=== PATIENT | male | born 1970 | race Caucasian/White ===

== ENCOUNTER 2016-09-17 15:16 | Emergency (ER) | payer MEDICAID ==
[~2016-09-17] VITALS: Ht 167.6 cm; Wt 103.1 kg
[~2016-09-17 15:16] MED LIST: None per pt
[2016-09-17] MEDS ORDERED: METF500T4 PO (16:12)
[2016-09-17] MEDS ORDERED: HTN MEDS (16:12)
[2016-09-17] MEDS ORDERED: LORazepam 2 MG/ML, 1ML ONE (16:28)
[2016-09-17] MEDS ORDERED: CHLORDIAZEPOXIDE 25 MG CAPSULE PO PRN (16:30)
[2016-09-17] MEDS ORDERED: SODIUM CHLORIDE 0.9% 1,000ML IVBOLUS ONE (16:30)
[2016-09-17] MEDS ORDERED: SODIUM CHLORIDE FLUSH 10ML SYR IVF ONE (16:30)
[2016-09-17] MEDS ORDERED: THIAMINE 100 MG in SODIUM CHLORIDE 0.9% 50 ML IVPB ONE (16:30)
[2016-09-17] MEDS ORDERED: LORazepam 2 MG/ML, 1ML IVPush PRN (16:30)
[2016-09-17] MEDS ORDERED: ONDANSETRON 2MG/ML, 2ML ONE (16:33)
[2016-09-17 16:47] LABS: HEMOGLOBIN 16.5 g/dL (13.7-18.0)
[2016-09-17 16:57] LABS: ASPARTATE AMINO TRANSFERASE 43 U/L (15-37); BLOOD UREA NITROGEN 12 mg/dL (7-18)
[2016-09-17] MEDS ORDERED: ONDANSETRON 2MG/ML, 2ML IVPush ONE (17:00)
[2016-09-17 17:30] VITALS: BP_DIAS 85
[2016-09-17 18:26] VITALS: BP_SYST 126
== END 2016-09-17 19:05 | disposition home or self-care (01) ==
LOC: ED 17:24
DX: F10.239 Alcohol dependence with withdrawal, unspecified (principal); I10 Essential (primary) hypertension; E11.9 Type 2 diabetes mellitus without complications; Y90.9 Presence of alcohol in blood, level not specified
CPT/HCPCS: 36415; 80053; 85025; 96365; 96375; 99284; J2060; J2405; J3411; J7030

== ENCOUNTER → 2019-12-20 | Outpatient (CLI) | payer MEDICAID ==
[~2019-12-20] MED LIST changes: +BENA10TA59 PO; +HTN MEDS; +METF500T17 PO; +OXYC5TAB2 PO
== END | disposition home or self-care (01) ==
LOC: STAR 14:10
PROVIDERS: ATTEND Orthopaedic Surgery
DX: Z01.818 Encounter for other preprocedural examination (principal); M75.122 Complete rotator cuff tear or rupture of left shoulder, not specified as traumatic; M25.512 Pain in left shoulder; M75.22 Bicipital tendinitis, left shoulder
CPT/HCPCS: 36415; 87635

== ENCOUNTER 2019-12-24 06:27 | Day surgery (SDC) | payer MEDICAID ==
[~2019-12-24] VITALS: Ht 167.6 cm; Wt 112.0 kg
[~2019-12-24 06:27] MED LIST changes: -BENA10TA59 PO; -OXYC5TAB2 PO
[2019-12-24] MEDS ORDERED: CHLORHEXIDINE 15 ML UDC MM STA (06:52)
[2019-12-24] MEDS ORDERED: LACTATED RINGERS 1,000 ML IV SCH (06:52)
[2019-12-24 06:54] VITALS: BP 137/87
[2019-12-24] MEDS ORDERED: FENTANYL PF 100 MCG/2ML ONE ×2 (07:20→08:40)
[2019-12-24] MEDS ORDERED: MIDAZOLAM 1 MG/ML, 2ML ONE (07:20)
[2019-12-24] MEDS ORDERED: BUPIVACAINE/PF 0.5% ONE ×2 (07:24→10:01)
[2019-12-24] MEDS ORDERED: BUPIVACAINE/EPI 0.5% 1:200K ONE (07:59)
[2019-12-24] MEDS ORDERED: LIDOCAINE/PF 1%-EPI 1:200K, 30 ML ONE (07:59)
[2019-12-24] MEDS ORDERED: ROCURONIUM 10MG/ML,5ML ONE (08:17)
[2019-12-24] MEDS ORDERED: SUCCINYLCHOLINE 20 MG/ML, 10ML ONE (08:17)
[2019-12-24] MEDS ORDERED: PHENYLEPHRINE 10 MG/ML ONE (08:17)
[2019-12-24] MEDS ORDERED: LABETALOL 5MG/ML, 20ML IV PRN (09:30)
[2019-12-24] MEDS ORDERED: LORazepam 2 MG/ML, 1ML IVPush PRN (09:30)
[2019-12-24] MEDS ORDERED: OXYcodone 5 MG/5 ML ORAL.SOL UDC PO PRN (09:30)
[2019-12-24] MEDS ORDERED: ACETAMINOPHEN 325 MG TABLET PO PRN (09:30)
[2019-12-24] MEDS ORDERED: HYDROmorphone 1 MG/ML, 1ML INJ IVPush PRN (09:30)
[2019-12-24] MEDS ORDERED: hydrALAzine 20 MG/ML, 1ML IV PRN (09:30)
[2019-12-24] MEDS ORDERED: PROMETHAZINE 25 MG/ML, 1ML IVPush PRN (09:30)
[2019-12-24] MEDS ORDERED: FENTANYL PF 100 MCG/2ML IV PRN (09:30)
[2019-12-24] MEDS ORDERED: ALBUTEROL SULFATE 2.5 MG/3 ML NPPB PRN (09:30)
[2019-12-24] MEDS ORDERED: MEPERIDINE/PF 25MG/0.5ML IVPush PRN (09:30)
[2019-12-24] MEDS ORDERED: CEFAZOLIN 1,000 MG ONE (10:01)
[2019-12-24] MEDS ORDERED: LIDOCAINE-MPF 2% ,5ML ONE (10:01)
[2019-12-24] MEDS ORDERED: ONDANSETRON 2MG/ML, 2ML ONE (10:01)
[2019-12-24] MEDS ORDERED: DEXAMETHASONE 4 MG/ML, 1ML ONE (10:01)
[2019-12-24] MEDS ORDERED: PROPOFOL 10 MG/ML, 20ML ONE (10:01)
[2019-12-24] MEDS ORDERED: KETOROLAC 30 MG/1 ML IVPush ONE (11:00)
[2019-12-24] MEDS ORDERED: BENA10TA59 PO (18:09)
[2019-12-24] MEDS ORDERED: OXYC5TAB2 PO (20:21)
== END 2019-12-24 12:40 | disposition home or self-care (01) ==
LOC: OUT 06:27
PROVIDERS: ATTEND Orthopaedic Surgery
DX: S46.012A Strain of muscle(s) and tendon(s) of the rotator cuff of left shoulder, initial encounter (principal); S46.112A Strain of muscle, fascia and tendon of long head of biceps, left arm, initial encounter; S43.432A Superior glenoid labrum lesion of left shoulder, initial encounter; M65.812 Other synovitis and tenosynovitis, left shoulder; M75.42 Impingement syndrome of left shoulder; M19.012 Primary osteoarthritis, left shoulder; M75.52 Bursitis of left shoulder; E66.9 Obesity, unspecified; I10 Essential (primary) hypertension; Z79.1 Long term (current) use of non-steroidal anti-inflammatories (NSAID); Z79.891 Long term (current) use of opiate analgesic; X50.0XXA Overexertion from strenuous movement or load, initial encounter; Y93.89 Activity, other specified; Y92.89 Other specified places as the place of occurrence of the external cause; Y99.8 Other external cause status
CPT/HCPCS: 29823; 29824; 29826; 29827; 29828; 64415; C1713; J0330; J0690; J1100; J1885; J2250; J2370; J2405; J2704; J3010; J3490; J7120; 36415; 87635

== ENCOUNTER 2019-12-24 13:39 | Observation (INO) | payer MEDICAID ==
[~2019-12-24] VITALS: Ht 167.6 cm; Wt 112.4 kg
--- NOTE | 2019-12-24 13:47 | NUR ---
MNIL X [id number]
--- NOTE | 2019-12-24 14:01 | NUR ---
PT TO ROOM IN
[2019-12-24] MEDS ORDERED: ONDANSETRON ODT 4 MG ONE (16:20)
[2019-12-24] MEDS ORDERED: HYDROcodone/APAP 5/325 TABLET ONE (16:21)
[2019-12-24] MEDS ORDERED: OXYcodone/APAP 5/325MG TABLET PO ONE (16:30)
[2019-12-24] MEDS ORDERED: HYDROcodone/APAP 5/325 TABLET PO ONE (16:30)
[2019-12-24] MEDS ORDERED: ONDANSETRON ODT 4 MG PO ONE (16:30)
--- NOTE | 2019-12-24 16:38 | NUR ---
PT AND PRICING SPECIALIST HAVING CONCERNS ABOUT REMOVING SHOULDER IMMOBILIZER POST SURGERY FOR MRI, TRINH CHRISTOPHER AT BEDSIDE FOR EVAL, OK TO PAD SHOULDER AND ADJUST FOR MRI
[2019-12-24] MEDS ORDERED: GADOTERATE 10 MMOL/20 ML SYR ONE (17:02)
--- NOTE | 2019-12-24 17:14 | NUR ---
PT RETURNED FROM MRI
[2019-12-24] MEDS ORDERED: BENA10TA59 PO (18:09)
--- NOTE | 2019-12-24 18:15 | NUR ---
PT RESTING IN GURNEY, PT STILL STATES SAME NUMB/TINGLING FEELING IN BLE. PT TO BE ADMITTITED FOR FURTHER EVALUATION. IV ESTABLISHED AND MED REC UPDATED. AWATING PLACEMENT.
[2019-12-24] MEDS ORDERED: ONDANSETRON ODT 4 MG PO PRN (19:30)
[2019-12-24] MEDS ORDERED: POLYETHYLENE GLYCOL 17 GM PACKET PO PRN (19:30)
[2019-12-24] MEDS ORDERED: BISACODYL 10 MG SUPP PR PRN (19:30)
--- NOTE | 2019-12-24 19:33 | NUR ---
REPORT TO ALEX DAVIS
[2019-12-24 19:36] LABS: BASOPHILS # (AUTO) 0.01 x10^3/uL (0-0.1); BASOPHILS % (AUTO) 0 % (0-1); EOSINOPHILS % (AUTO) 0 % (1-7); LYMPHOCYTES # (AUTO) 0.67 x10^3/uL (1-3.4); LYMPHOCYTES % (AUTO) 5 % (22-44); MD NO; MEAN CORPUSCULAR HEMOGLOBIN 35.6 pg (27.5-34.5); MEAN CORPUSCULAR HGB CONC 33.6 g/dL (33.2-36.2); MEAN PLATELET VOLUME 8.7 fL (7.4-10.4); MONOCYTES # (AUTO) 0.48 x10^3/uL (0.2-0.8); MONOCYTES % (AUTO) 4 % (2-9); NEUTROPHILS # (AUTO) 11.18 x10^3/uL (1.8-6.8); NEUTROPHILS % (AUTO) 91 % (42-75); PLATELET COUNT 194 x10^3/uL (130-400); RED BLOOD COUNT 4.11 x10^6/uL (4.38-5.82); RED CELL DISTRIBUTION WIDTH 13.1 % (9.4-14.8)
[2019-12-24 19:45] LABS: ALANINE AMINOTRANSFERASE 48 U/L (12-78); ALBUMIN 3.8 g/dL (3.4-5.0); ANION GAP 8 mmol/L (5-15); CALCIUM 8.4 mg/dL (8.5-10.1); CHLORIDE 102 mmol/L (98-107)
[2019-12-24 19:47] LABS: ALKALINE PHOSPHATASE 62 U/L (45-117); BILIRUBIN,TOTAL 0.5 mg/dL (0.2-1.0); CREATINE KINASE, TOTAL 339 U/L (39-308); TOTAL PROTEIN 8.4 g/dL (6.4-8.2)
[2019-12-24] MEDS ORDERED: OXYC5TAB2 PO (20:21)
[2019-12-24 20:28] VITALS: BP 158/94
[2019-12-24] MEDS: SODIUM CHLORIDE FLUSH 10ML SYR IVF SCH (21:26)
[2019-12-24] MEDS: OXYcodone/APAP 10/325MG TABLET PO PRN (22:28)
[2019-12-25 01:49] VITALS: BP 122/71
[2019-12-25] MEDS: OXYcodone/APAP 10/325MG TABLET PO PRN ×4 (04:32→19:40)
[2019-12-25 06:29] VITALS: BP 123/76
[2019-12-25] MEDS: SENNA/DOCUSATE TABLET PO SCH (08:42)
[2019-12-25] MEDS: SODIUM CHLORIDE FLUSH 10ML SYR IVF SCH ×2 (08:42→21:10)
[2019-12-25] MEDS: BENAZEPRIL 10 MG TABLET PO SCH (08:43)
[2019-12-25 12:41] VITALS: BP 113/76
[2019-12-25] MEDS: MORPHINE SULFATE 4 MG/ML, 1ML IVPush PRN ×2 (16:18→21:09)
[2019-12-25] MEDS ORDERED: MORPHINE SULFATE 4 MG/ML, 1ML IVPush ONE (17:30)
[2019-12-25 17:40] VITALS: BP 118/82
[2019-12-25 19:21] VITALS: BP 118/74
[2019-12-26] MEDS: OXYcodone/APAP 10/325MG TABLET PO PRN ×4 (00:47→23:44)
[2019-12-26 01:18] VITALS: BP 119/78
[2019-12-26 07:12] LABS: MEAN CORPUSCULAR HEMOGLOBIN 35.6 pg (27.5-34.5); MEAN CORPUSCULAR HGB CONC 33.1 g/dL (33.2-36.2); MEAN CORPUSCULAR VOLUME 107.5 fL (81-97); MEAN PLATELET VOLUME 8.5 fL (7.4-10.4); PLATELET COUNT 165 x10^3/uL (130-400); RED BLOOD COUNT 3.59 x10^6/uL (4.38-5.82); RED CELL DISTRIBUTION WIDTH 13.1 % (9.4-14.8)
[2019-12-26 07:18] LABS: CHLORIDE 99 mmol/L (98-107)
[2019-12-26 07:31] LABS: BASOPHILS # (AUTO) 0.02 x10^3/uL (0-0.1); BASOPHILS % (AUTO) 0 % (0-1); EOSINOPHILS % (AUTO) 1 % (1-7); LYMPHOCYTES # (AUTO) 1.19 x10^3/uL (1-3.4); LYMPHOCYTES % (AUTO) 14 % (22-44); MD SCAN; MONOCYTES # (AUTO) 0.84 x10^3/uL (0.2-0.8); MONOCYTES % (AUTO) 10 % (2-9); NEUTROPHILS # (AUTO) 6.17 x10^3/uL (1.8-6.8); NEUTROPHILS % (AUTO) 74 % (42-75)
[2019-12-26 07:46] VITALS: BP 136/83
[2019-12-26 07:52] LABS: ALANINE AMINOTRANSFERASE 46 U/L (12-78); ALBUMIN 3.3 g/dL (3.4-5.0); ALKALINE PHOSPHATASE 54 U/L (45-117); ANION GAP 5 mmol/L (5-15); BILIRUBIN,TOTAL 0.6 mg/dL (0.2-1.0); CREATINE KINASE, TOTAL 257 U/L (39-308); CREATININE 0.99 mg/dL (0.7-1.3); TOTAL PROTEIN 7.4 g/dL (6.4-8.2)
[2019-12-26] MEDS: SENNA/DOCUSATE TABLET PO SCH (10:05)
[2019-12-26] MEDS: BENAZEPRIL 10 MG TABLET PO SCH (10:05)
[2019-12-26] MEDS: SODIUM CHLORIDE FLUSH 10ML SYR IVF SCH ×2 (10:06→20:46)
[2019-12-26 14:26] VITALS: BP 114/76
[2019-12-26] MEDS: GABAPENTIN 300 MG CAPSULE PO SCH ×2 (17:27→20:45)
[2019-12-26 20:15] VITALS: BP 143/80
[2019-12-27] MEDS ORDERED: TEMAZEPAM 15 MG CAPSULE PO PRN
[2019-12-27 01:19] VITALS: BP 153/84
[2019-12-27] MEDS: MORPHINE SULFATE 4 MG/ML, 1ML IVPush PRN (05:01)
[2019-12-27 05:36] LABS: BASOPHILS # (AUTO) 0.04 x10^3/uL (0-0.1); BASOPHILS % (AUTO) 0 % (0-1); EOSINOPHILS # (AUTO) 0.09 x10^3/uL (0-0.4); EOSINOPHILS % (AUTO) 1 % (1-7); LYMPHOCYTES # (AUTO) 1.41 x10^3/uL (1-3.4); LYMPHOCYTES % (AUTO) 15 % (22-44); MD NO; MEAN CORPUSCULAR HEMOGLOBIN 35.8 pg (27.5-34.5); MEAN CORPUSCULAR HGB CONC 33.5 g/dL (33.2-36.2); MEAN PLATELET VOLUME 8.2 fL (7.4-10.4); MONOCYTES % (AUTO) 9 % (2-9); NEUTROPHILS # (AUTO) 6.93 x10^3/uL (1.8-6.8); NEUTROPHILS % (AUTO) 75 % (42-75); PLATELET COUNT 193 x10^3/uL (130-400); RED BLOOD COUNT 3.97 x10^6/uL (4.38-5.82); RED CELL DISTRIBUTION WIDTH 12.9 % (9.4-14.8)
[2019-12-27] MEDS: OXYcodone/APAP 10/325MG TABLET PO PRN ×2 (05:41→11:36)
[2019-12-27 05:44] LABS: ANION GAP 4 mmol/L (5-15); CALCIUM 8.6 mg/dL (8.5-10.1); CHLORIDE 100 mmol/L (98-107); CREATININE 0.91 mg/dL (0.7-1.3)
[2019-12-27 06:54] VITALS: BP 110/72
[2019-12-27] MEDS: SENNA/DOCUSATE TABLET PO SCH (08:25)
[2019-12-27] MEDS: GABAPENTIN 300 MG CAPSULE PO SCH (08:25)
[2019-12-27] MEDS: BENAZEPRIL 10 MG TABLET PO SCH (08:25)
[2019-12-27] MEDS: SODIUM CHLORIDE FLUSH 10ML SYR IVF SCH (08:25)
[2019-12-27 13:57] VITALS: BP 128/75
== END 2019-12-27 16:06 | disposition home or self-care (01) ==
LOC: ED 15:19 → INTOOBSV 19:12 → EDIP 19:12 → 3N 20:13 → DCLOUNGE 12-27 16:06
PROVIDERS: ADMIT Hospitalist; ATTEND Hospitalist
DX: R20.2 Paresthesia of skin (principal); F10.239 Alcohol dependence with withdrawal, unspecified; R52 Pain, unspecified; I10 Essential (primary) hypertension; E66.9 Obesity, unspecified; E11.9 Type 2 diabetes mellitus without complications
CPT/HCPCS: 36415; 72158; 80048; 80053; 82550; 82607; 83605; 85025; 86592; 93922; 96374; 96376; 97163; 97167; 97530; 99285; A9575; G0378; J2270; Q0162